=== PATIENT | male | born 1980 | race Caucasian/White ===

== ENCOUNTER 2017-12-14 04:43 | Emergency (ER) | payer SELFPAY ==
[~2017-12-14] VITALS: Ht 195.6 cm; Wt 99.8 kg
[~2017-12-14 04:43] MED LIST: ALBU90OI6 INH; AZIT250 PO; BENGAY113 GM TP; BENZ100A PO; CLOBETTC TOP; DOXY100 PO; FLUC150A PO; Flonase 0.05% N16 GM; GUAPHELA PO; HYDACE5 PO; IBUP800 PO; MULTI VITAMIN1 EACH PO; NAPR550 PO; NICO14TP TOP; Norco 5-325 Ta1 EACH PO; ONDA4ODT MM; OXYACE5T PO; PENVK250 PO; PROCODE120 PO; PROM25 PO; RXSULTRIDS PO; SULTRIDS PO; Veetids 500500 MG PO
== END 2017-12-14 07:04 | disposition left against medical advice (07) ==
LOC: ER 04:43
DX: Z53.21 Procedure and treatment not carried out due to patient leaving prior to being seen by health care provider (principal)

== ENCOUNTER 2019-01-15 18:46 | Emergency (ER) | payer OTHER ==
[~2019-01-15] VITALS: Ht 193 cm; Wt 99.8 kg
== END 2019-01-15 19:56 | disposition home or self-care (01) ==
LOC: ER 18:46
DX: H91.92 Unspecified hearing loss, left ear (principal); Z87.891 Personal history of nicotine dependence
CPT/HCPCS: 99282

== ENCOUNTER 2020-12-11 04:58 | Emergency (ER) | payer OTHER ==
[~2020-12-11] VITALS: Ht 193 cm; Wt 104.3 kg
== END 2020-12-11 08:15 | disposition home or self-care (01) ==
LOC: ER 04:58
DX: S29.012A Strain of muscle and tendon of back wall of thorax, initial encounter (principal)
CPT/HCPCS: 99282